=== PATIENT | female | born 1960 | race Caucasian/White ===

== ENCOUNTER 2025-06-15 20:28 | Emergency (ER) | payer OTHER, SELFPAY ==
[2025-06-15 20:35] VITALS: BP 198/84; PULSE 81; RESP 18; TEMP 36.9; O2SAT 97; BMI 38.5
--- NOTE | 2025-06-15 20:43 | CRLHL7_ITS ---
For Patients: As a result of the Century Cures Act, medical imaging exams and procedure reports are released immediately into your electronic medical record. You may view this report before your referring provider. If you have questions, please contact your health care provider. INDICATION: Right knee and calf pain TECHNIQUE: Ultrasound venous duplex right lower extremity. Real-time palmer-scale (B mode 2D), color Doppler, and spectral Doppler imaging were performed with compression and augmentation. COMPARISON: None FINDINGS: Deep vein: The right common femoral, femoral, popliteal, and visualized calf veins are fully compressible, demonstrate normal color flow, and normal response to mechanical augmentation. The Duplex Doppler waveforms are normal in appearance. Superficial vein: The visualized greater saphenous and superficial veins of the leg and calf are unremarkable. Soft tissue: There is a cystic structure in the medial knee measuring 3 x 3.2 x 1 cm. No adenopathy is seen. IMPRESSIONS: 1. No sonographic evidence of acute deep venous thrombosis seen. 2. There is a cystic structure in the medial knee measuring 3 x 3.2 x 1 cm. This may represent a bursa and assessment with outpatient MRI may be helpful. Dictated by Jose Navarro MD @ 06/15/2025 9:23:11 PM Dictated by: Jose Navarro MD @ 06/15/2025 21:23:19 (Electronically Signed)
--- NOTE | 2025-06-15 21:30 | CRLHL7_ITS ---
For Patients: As a result of the Cures Act, medical imaging exams and procedure reports are released immediately into your electronic medical record. You may view this report before your referring provider. If you have questions, please contact your health care provider. INDICATION: Right knee pain, No trauma. Pain started today with no injury, medial and anterior, inferior knee pain TECHNIQUE: Knee radiograph 3 views right COMPARISON: None FINDINGS: Bone: No acute fractures or aggressive bone lesions are identified. Joint: Mild osteoarthritis is noted in the medial compartment. No significant knee effusion is seen. Soft tissue: Unremarkable. No radiopaque foreign bodies are seen. IMPRESSION: 1. No acute osseous injuries or abnormalities are noted. Dictated by: Jose Navarro MD @ 06/15/2025 22:16:37 (Electronically Signed)
[2025-06-15 21:39] VITALS: BP 193/96; PULSE 88; RESP 16; O2SAT 96
--- OUTSIDE RECORDS SUMMARY | 2025-06-15 21:41 | XMS_ITS | Clinical Summary ---
Author Organization [facility] Address [facility]ly [facility] [place] [address] Care Team Providers Care Candy Dipper Name Role Phone Rosangela Capps MD Primary Care Provide r Allergies No known active allergies Medications aspirin (ECOTRIN) 81 mg enteric coated tabletIndicati ons:myocardial infarction prevention Take 81 mg by mouth once daily with a meal. Active ibuprofen (ADVIL; MOTRIN) 200 mg tablet Take 200 mg by mouth every 4 hours if needed for Pain or Headache. Active lisinopril (PRINIVIL; ZESTRIL) 10 mg tabletIndicati ons:hypertensi on Take 10 mg by mouth once daily. Active HYDROcodone-ac etaminophen, 5-325 mg, (NORCO) per tabletIndicati ons:Acute medial meniscal tear, right, subsequent encounter Take 1-2 tablets by mouth every 6 hours if needed for Pain Max acetaminophen dose: 4000 mg in 24 hrs. 30 tablet 8 Active Immunizations Immunization Administration Dates Next Due Influenza, IIV3 (Age >=3 years) 07/19/2009 Td (Age >=7 Years) 01/17/2005 Family History Medical History Relation Name Comments Other Other fibrodysplasia? ? Relation Name Status Comments Other Social History Tobacco Use Types Packs/Day Years Used Date Smoking Tobacco: Every Day Cigarettes 1 20 Smokeless Tobacco: Never Alcohol Use Standard Drinks/Week Comments Yes 0 (1 standard drink = 0.6 oz pur e alcohol) Comments No Sex and Gender Information Value Date Recorded Sex Assigned at Not on file Legal Sex Female 6:59 AM [employer] Gender Identity Not on file Sexual Orientation Not on file Obstetrics History Last Filed Vital Signs Vital Sign Reading Time Taken Comments Blood Pressure 129/76 07/16/2018 9:30 AM CDT Pulse 82 07/16/2018 9:30 AM CDT Temperature 36.6 C (97.8 F) 07/16/2018 9:00 AM CDT Respiratory Rate 18 07/16/2018 9:30 AM CDT Oxygen Saturation 94% 07/16/2018 9:30 AM CDT Inhaled Oxygen Concentration - - Weight 95.8 kg (211 lb 1.6 oz) 07/16/2018 6:13 A M CDT Height 168 cm (5' 6.14) 07/14/2018 7:42 AM CDT Body Mass Index 33.93 07/14/2018 7:42 AM CDT Plan of Treatment Health Maintenance Due Date Last Done Comments Depression screening for age 12+ 1974 HIV for age 15-65 1977 BMI (ht and wt on same day) for age 18+ 1980 Hepatitis C screening for ag e 18-79 1980 Pap test for age 21-65 1983 Colonoscopy through age 75 2007 Lipids for age 45-75 2007 Mammogram for age 45-75 2007 Pneumococcal series for age 50+ (1 of 1 - PCV) 2012 Zoster (shingles) series for age 50+ (1 of 2) 2012 Tetanus booster 01/17/2015 01/17/2005 COVID-19 vaccine series ( - 2023- season) 2024 Influenza Vaccine (#1) 2025 07/19/2009 RSV vaccine for adults or (1 - 1-dose 75+ series) 2037 Hepatitis B series for 19+ Aged Out N o longer eligible based on patient's age to complete this topic Insurance [employer] [address] [place] [id number] Advance Directives * Full Code (Latest Code Status on File) Date Activated Date Inactivated Comments 07/16/2018 5:59 AM 07/16/2018 12:13 PM * Full Code Date Activated Date Inactivated Comments 03/26/2010 7:11 AM 03/26/2010 11:59 AM * Full Code Date Activated Date Inactivated Comments 09/03/2009 12:04 PM 09/03/2009 6:37 PM Care Teams Candy Dipper Relationship Specialty Start Date End Date Rosangela Capps MD PCP - General Family Practice 10/01/11
--- OUTSIDE RECORDS SUMMARY | 2025-06-15 21:41 | XMS_ITS | Patient Health Record ---
Author Organization Corporate Office Address [address] [place] [address] [address] [facility] [place] [address] Care Team Providers Care Coil Strapper Name Role Phone Quincy Rod CNP [phone] Reason For Referral No Information Medications Medication SIG (Take, Route, Fr equency, Duration) Notes Start Date End Date Status Lisinopril 10 MG 1 tablet Orally Once a day; Duration: 30 day(s) Active Aspir-81 81 MG 1 tablet Orally Once a day; Duration: 30 day(s) Active Immunizations Vaccine Route Administration Date Status Comme nts IM Hep-B Engerix-B 1.0ml (20yr+) GSK IM Intramuscular 10/28/2013 Administered Pt tolerated we ll. 10 min observation. ID PPD Tubersol 0.1ml (no age) Sanofi ID Intradermal 10/28/2013 Administered TDAP >7 10201 IM Intramuscular 10/28/2013 Administered 10 Minute observation Pt tolerated well. Plan Of Treatment Pending Test Test Name Order Date Urinalysis, Without Micro 10/28/2013 Nicotine and Metabolites Ur 10/28/2013 Insurance Providers Payer Name Payer Address Payer Phone Subscriber Number Group Number Insured Name Patient Relationship to Insured Coverage Start Date Coverage End Date [employer] [id number] [place] [address] 0 Lakesha Graves Self - patient is the insured Medical (General) History Medical History History ICD Code Hypertension kidney stones
--- NOTE | 2025-06-15 22:12 | ED.GENADULT ---
HPI - General Adult General Date Seen: 06/15/25 Chief complaint: Extremity Pain/Injury, Lower Stated complaint: R knee pain Time Seen by Provider: 06/15/25 21:00 Source: patient Mode of arrival: ambulatory Limitations: no limitations History of Present Illness HPI narrative: Patient is a 65-year-old female presenting for right knee pain. She states today she started noticing rate knee pain while she was driving to work about 14:30. 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 Denies any recent injuries to the knee. Has never had pain like this before. Pains seems mostly be in the medial aspect of the right knee and in the anterior inferior region around the insertion point of the patella tendon. States she has never had pain like this before and states the pain was a 10/10. Took Midol at 15:00 with minimal improvement. Has no history of blood clots herself but does have a family history of blood clots. Pain does seem to radiate into the upper calf. Denies any fevers or chills. Has not noticed any rashes or erythema over the knee Related Data Home Medications ?Medication ?Instructions ?Recorded ?Confirmed aspirin 325 mg capsule 325 mg PO DAILY 06/15/25 06/15/25 hydrochlorothiazide PO 06/15/25 lisinopril .ROUTE 06/15/25 Allergies Allergy/AdvReac Type Severity Reaction Status Date / Time No Known Drug Allergies Allergy Verified 06/15/25 20:41 Review of Systems Status of ROS: Reports: 10 or more systems reviewed and unremarkable except as noted in History and below Exam Narrative: Exam Narrative: Const: Well-nourished, Well-developed, in mild distress Eyes: PERRL, no conjunctival injection, and symmetrical lids HENT: Atraumatic external nose and ears. Moist mucous membranes. MSK:Extremities w/o deformity, decreased range of motion to right knee secondary to pain but has normal passive range of motion. Mild tenderness to the medial joint line and the insertion point of the patella tendon. Skin: Warm, Dry. No rashes or lesions. Neuro: Normal Muscle tone, No focal neurological deficits. Psych: Awake, Alert, & Oriented x3. Appropriate mood and affect. Const: Vital Signs, click to edit/add: Vital Signs - 24 hr 06/15/25 20:35 06/15/25 21:39 Temperature 98.5 F Pulse Rate [Pulse Oximeter] 81 88 Respiratory Rate 18 16 Blood Pressure [Ri ght Upper Arm] 198/84 H 193/96 H Pulse Oximetry 97 96 Oxygen Delivery Me thod Room Air Room Air Course Vital Signs Vital signs: Initial Vital Signs Temperature 98.5 F 06/15/25 20:35 Temperature Source Temporal Artery Scan 06/15/25 20:35 Pulse Rate 81 06/15/25 20:35 Respiratory Rate 18 06/15/25 20:35 Blood Pressure 198/84 H 06/15/25 20:35 Blood Pressure Mean 122 H 06/15/25 20:35 Blood Pressure Position Sitting 06/15/25 20:35 Pulse Oximetry 97 06/15/25 20:35 Oxygen Delivery Method Room Air 06/15/25 20:35 Vital Signs Temperature 98.5 F 06/15/25 20:35 Pulse Rate 81 06/15/25 20:35 Respiratory Rate 18 06/15/25 20:35 Blood Pressure 198/84 H 06/15/25 20:35 Pulse Oximetry 97 06/15/25 20:35 Oxygen Delivery Method Room Air 06/15/25 20:35 Temperature 98.5 F 06/15/25 20:35 Pulse Rate 88 06/15/25 21:39 Respiratory Rate 16 06/15/25 21:39 Blood Pressure 193/96 H 06/15/25 21:39 Pulse Oximetry 96 06/15/25 21:39 Oxygen Delivery Method Room Air 06/15/25 21:39 Medical Decision Making MDM Narrative Medical decision making narrative: Patient is a 65-year-old female presenting to emergency department for right knee pain. In triage the ultrasound was ordered to look for signs of a blood clot considering her concern. That returned showing a small Fung cyst but no signs of a blood clot. I evaluate the knee and ordered x-ray for better evaluation of possible bony injuries. Also look for effusion. At this time and I do not believe she is showing any signs of a septic joint or gout. Insert returned showing no acute concerning abnormalities. Toradol was given for pain. This time I believe she is safe for discharge. She is agreeable to this plan. Imaging Data Venous US: Attestation: I have reviewed the pertinent imaging results. Radiologist's impression: 1. No sonographic evidence of acute deep venous thrombosis seen. 2. There is a cystic structure in the medial knee measuring 3 x 3.2 x 1 cm. This may represent a bursa and assessment with outpatient MRI may be helpful. Dictated by Jose Navarro MD @ 06/15/2025 9:23:11 PM Right knee x-ray: Attestation: I have reviewed the pertinent imaging results. Radiologist's impression: 1. No acute osseous injuries or abnormalities are noted. Dictated by: Jose Navarro MD @ 06/15/2025 22:16:37 Discharge Plan Discharge Clinical Impression: Knee pain, right Qualifiers: Chronicity: acute Qualified Code(s): M25.561 - Pain in right knee Fung cyst Qualifiers: Laterality: right Qualified Code(s): M71.21 - Synovial cyst of popliteal space [Fung], right knee Patient Disposition: Home, Self-Care Condition: Stable Instructions: Fung Cyst (ED), Knee Pain (ED) Additional Instructions: You do have a small Fung cyst in your right knee. Will this seems unlikely be causing the pain a could be the source of your pain. Can be further evaluated with an MRI. The also help evaluate your knee pain. Recommend Follow-up with [facility]. Call them at Prescriptions: No Action lisinopril .ROUTE aspirin 325 mg capsule 325 mg PO DAILY hydrochlorothiazide PO Follow Up/Referrals: Provider,Not a Local [Primary Care Provider, Family Practice] Stand Alone Forms: [employer] Info Instructions
== END 2025-06-15 22:58 | disposition home or self-care (01) ==
PROVIDERS: Emergency Provider Student in an Organized Health Care Education/Training Program
DX: M71.21 Synovial cyst of popliteal space [Baker], right knee (principal)
CPT/HCPCS: 73562; 93971; 96372; 99283; J1885